=== PATIENT | male | born 1935 | race Caucasian/White ===

== ENCOUNTER 2017-12-30 13:52 | Emergency (ER) | payer OTHER, SELFPAY ==
[2017-12-30 14:06] VITALS: BP 118/59; PULSE 82; RESP 16; TEMP 36.9; O2SAT 97; BMI 27.9
--- NOTE | 2017-12-30 14:47 | DI.CT.S_ITS ---
PROCEDURE: CT HEAD/BRAIN WO CON INDICATIONS: dizzy, AMS this am TECHNIQUE: Noncontrast 4.5 mm thick angled axial sections acquired from the foramen magnum to the vertex, with coronal and sagittal reformats. For radiation dose reduction, the following was used: automated exposure control, adjustment of mA and/or kV according to patient size. COMPARISON: None. FINDINGS: Image quality: Excellent. CSF spaces: Basal cisterns are patent. No extra-axial fluid collections. The ventricles are symmetric in size and shape. Brain: No intracranial bleeds or masses. There is cerebral volume loss for age, with resultant ventricular and sulcal prominence. There are periventricular and deep white matter chronic small vessel ischemic changes. There is intracranial internal carotid artery atherosclerosis. Skull and face: Calvarium and visualized facial bones appear intact, without suspicious lesions. Sinuses: Visualized sinuses and mastoids are clear. IMPRESSION: No acute intracranial abnormality. Dictated by: Bri Bucio M.D. on 12/30/2017 at 15:05 Approved by: Bri Bucio M.D. on 12/30/2017 at 15:06
--- NOTE | 2017-12-30 14:49 | DI.RAD.S_ITS ---
PROCEDURE: XR CHEST 2V INDICATIONS: ams TECHNIQUE: 2 views of the chest were acquired. COMPARISON: None. FINDINGS: Surgical changes and devices: None. Lungs and pleura: No pleural effusions or pneumothorax. Lungs are clear. Mediastinum: Mediastinal contours are normal. Heart size is normal. Bones and chest wall: No suspicious bony abnormalities. Soft tissues appear unremarkable. IMPRESSION: No acute process. Dictated by: Bri Bucio M.D. on 12/30/2017 at 15:12 Approved by: Bri Bucio M.D. on 12/30/2017 at 15:12
[2017-12-30 15:00] LABS: Add Manual Diff / Slide Review NO; Basophils Percent Auto 0.5 % (0-2); Hematocrit 40.6 % (41-53); Hemoglobin 13.7 g/dL (13.5-17.5); Lymphocytes Percent Auto 4.2 % (25-40); Mean Corpuscular HGB Conc 33.7 % (30-36); Mean Corpuscular Hemoglobin 31.7 PG (26-34); Monocytes Percent Auto 6.6 % (3-14); Neutrophils Absolute Auto 16200 /uL (3000-5900); Neutrophils Percent Auto 88.7 % (50-75); Platelet Count 106 X10^3/uL (150-400); Red Blood Cell Count 4.32 X10^6/uL (4.5-5.9); Red Cell Distribution Width 12.9 % (11.6-14.8); White Blood Cell Count 18.2 X10^3/uL (4.5-11.0)
[2017-12-30 15:06] LABS: Alanine Aminotransferase 74 IU/L (21-72); Albumin 4.3 g/dL (3.5-5.0); Albumin Globulin Ratio 1.5 (1.0-2.8); Alkaline Phosphatase 55 U/L (38-126); Aspartate Aminotransferase 40 IU/L (17-59); Blood Urea Nitrogen 18 mg/dL (9-20); Calcium 9.4 mg/dL (8.4-10.2); Carbon Dioxide 27 mmol/L (22-32); Chloride 101 mmol/L (98-107); Creatine Kinase 39 U/L (55-170); Estimated Glomerular Filt Rate > 60.0 mL/min (>60); Globulin 2.8 g/dL (1.7-4.1); Glucose 142 mg/dL (80-110); HEMOLYSIS < 15 (0-50); Sodium 139 mmol/L (137-145); Total Protein 7.1 g/dL (6.3-8.2)
[2017-12-30 15:18] LABS: B Type Natriuretic Peptide 32.4 (<100); Troponin I < 0.012 ng/mL (0.01-0.034)
[2017-12-30 15:30] VITALS: BP 114/41; PULSE 74; RESP 14; O2SAT 97
[2017-12-30] MEDS: SODIUM CHLORIDE 0.9% 1,000 ML 1000 ML IV (15:34)
--- NOTE | 2017-12-30 15:41 | ED.DIZZY ---
HPI - Dizziness <TEDDY Sanders - Last Filed: 12/30/17 18:17> General Chief Complaint: Dizziness Stated Complaint: very dizzy this morning Time Seen by Provider: 12/30/17 14:30 Source: patient and family Mode of arrival: ambulatory Limitations: no limitations History of Present Illness HPI Narrative: Patient presents with chief complaint of one hr of dizziness this morning. Described as lightheadedness and near syncope while walking to the kitchen. He denied any chest pain, shortness of breath, fever, nausea vomiting or diarrhea. He denies any cough, congestion, abdominal pain. He states right now he feels fine. He denies any major medical history other than orthopedic procedures. He does not take any prescription medications per day. Denies any dysuria, urgency or frequency. He denies rectal pressure. He denies pain on bowel movement. Related Data Previous Rx's Medication Instructions Recorded levofloxacin 750 mg PO DAILY #7 tab 12/30/17 Allergies Allergy/AdvReac Type Severity Reaction Status Date / Time No Known Allergies Allergy Uncoded 06/27/17 13:04 Review of Systems <TEDDY Sanders - Last Filed: 12/30/17 18:17> Review of Systems GENERAL: Denies chills, fatigue, malaise, fever, sweats. HEENT: Denies sinus pain, ear pain, sore throat, difficulty swallowing, dizziness. RESPIRATORY: Denies dyspnea, cough, wheezing, hemoptysis, sputum. CARDIOVASCULAR: Denies chest pain, palpitations, orthopnea, edema, GASTROINTESTINAL: Denies nausea, vomiting, abdominal pain, diarrhea, constipation, melena. : Denies dysuria, frequency, incontinence, hematuria, urinary retention. MUSCULOSKELETAL: denies weakness, joint pain, or bony pain SKIN: Denies rash, skin lesions, or other NEUROLOGIC: See HPI PSYCHIATRIC: No concerning psychosocial issues. 12 point review of systems is negative except for those stated above Exam <TEDDY Sanders - Last Filed: 12/30/17 18:17> Narrative Exam Narrative: GENERAL: Elderly gentleman lying on stretcher. HEAD: Atraumatic. Normocephalic. No temporal or scalp tenderness. EYES: Pupils equal round and reactive. Extraocular motions intact. No scleral icterus. No injection or drainage. ENT: Nose without bleeding, purulent drainage or septal hematoma. Throat without erythema, tonsillar hypertrophy or exudate. Uvula midline. Airway patent. NECK: Trachea midline. No JVD or lymphadenopathy. Supple, nontender, no meningeal signs. CARDIOVASCULAR: Regular rate and rhythm without murmurs, gallops, or rubs. RESPIRATORY: Clear to auscultation. Breath sounds equal bilaterally. No wheezes, rales, or rhonchi. GASTROINTESTINAL: Abdomen soft, non-tender, nondistended. No hepato-splenomegaly, or palpable masses. No guarding. EXTREMITIES: No clubbing, cyanosis, or edema. No joint tenderness, effusion, or edema noted. BACK: Nontender without deformity or crepitance. No flank tenderness. NEURO: AOx3. Cranial nerves grossly intact. Strength equal upper and lower extremities bilaterally. SKIN: No rash or erythema. Initial Vital Signs Initial Vital Signs: Vital Signs Temperature 98.5 F 12/30/17 14:06 Pulse Rate 82 12/30/17 14:06 Respiratory Rate 16 12/30/17 14:06 Blood Pressure 118/59 L 12/30/17 14:06 Pulse Oximetry 97 12/30/17 14:06 <David Wells DO - Last Filed: 12/30/17 18:38> Initial Vital Signs Initial Vital Signs: Vital Signs Temperature 98.5 F 12/30/17 14:06 Pulse Rate 82 12/30/17 14:06 Respiratory Rate 16 12/30/17 14:06 Blood Pressure 118/59 L 12/30/17 14:06 Pulse Oximetry 97 12/30/17 14:06 Course <KARINA Sanders-BC - Last Filed: 12/30/17 18:17> Course Narrative: A checked on the patient and his several times throughout his stay. Orders Ordered: ED Orders 12/30/17 14:40 B Type Natriuretic Peptide Stat Complete Blood Count AUTO DIFF Stat Comprehensive Metabolic Panel Stat Troponin & CK Cardiac Panel Stat 12/30/17 14:47 CT head/brain wo con Stat 12/30/17 14:49 XR chest 2V Stat 12/30/17 16:00 Urinalysis and Microscopic Stat Urine Culture Stat Discontinued Medications Sodium Chloride (Normal Saline 0.9%) 1,000 mls @ 1,000 mls/hr IV BOLUS ONE Stop: 12/30/17 15:46 Last Infusion: 12/30/17 16:48 Dose: 1,000 mls/hr Admin: 12/30/17 15:34 Dose: 1,000 mls/hr Levofloxacin (Levaquin) 500 mg PO NOW ONE Stop: 12/30/17 16:34 Last Admin: 12/30/17 16:41 Dose: 500 mg Vital Signs - 8 hr 12/30/17 14:06 12/30/17 15:30 12/30/17 16:36 Temperature 98.5 F Pulse Rate 82 74 75 Respiratory Rate 16 14 20 Blood Pressure 118/59 L Blood Pressure [Left Arm] 114/41 L 120/54 L Pulse Oximetry 97 97 96 <David Wells DO - Last Filed: 12/30/17 18:38> Orders Ordered: ED Orders 12/30/17 14:40 B Type Natriuretic Peptide Stat Complete Blood Count AUTO DIFF Stat Comprehensive Metabolic Panel Stat Troponin & CK Cardiac Panel Stat 12/30/17 14:47 CT head/brain wo con Stat 12/30/17 14:49 XR chest 2V Stat 12/30/17 16:00 Urinalysis and Microscopic Stat Urine Culture Stat Discontinued Medications Sodium Chloride (Normal Saline 0.9%) 1,000 mls @ 1,000 mls/hr IV BOLUS ONE Stop: 12/30/17 15:46 Last Infusion: 12/30/17 16:48 Dose: 1,000 mls/hr Admin: 12/30/17 15:34 Dose: 1,000 mls/hr Levofloxacin (Levaquin) 500 mg PO NOW ONE Stop: 12/30/17 16:34 Last Admin: 12/30/17 16:41 Dose: 500 mg Vital Signs - 8 hr 12/30/17 14:06 12/30/17 15:30 12/30/17 16:36 Temperature 98.5 F Pulse Rate 82 74 75 Respiratory Rate 16 14 20 Blood Pressure 118/59 L Blood Pressure [Left Arm] 114/41 L 120/54 L Pulse Oximetry 97 97 96 MDM - Dizziness <KANWAL Sanders - Last Filed: 12/30/17 18:17> Lab Data Attestation: I reviewed the patient's lab results. Result diagrams: 12/30/17 14:40 12/30/17 14:40 Lab Results 12/30/17 12/30/1718 Range/Units 14:40 14:40 16:00 WBC 18.2 H (4.5-11.0) X10^3/uL RBC 4.32 L (4.5-5.9) X10^6/uL Hgb 13.7 (13.5-17.5) g/dL Hct 40.6 L (41-53) % MCV 94.0 (80-100) fL MCH 31.7 (26-34) PG MCHC 33.7 (30-36) % RDW 12.9 (11.6-14.8) % Plt Count 106 L (150-400) X10^3/uL Neut % (Auto) 88.7 H (50-75) % Lymph % (Auto) 4.2 L (25-40) % Lamar % (Auto) 6.6 (3-14) % Eos % (Auto) 0.0 L (2-4) % Baso % (Auto) 0.5 (0-2) % Neut # (Auto) 47040 H (1008-1812) /uL Sodium 139 (137-145) mmol/L Potassium 4.0 (3.4-5.1) mmol/L Chloride 101 (98-107) mmol/L Carbon Dioxide 27 (22-32) mmol/L BUN 18 (9-20) mg/dL Creatinine 0.90 (0.66-1.25) mg/dL Estimated GFR > 60.0 (>60) mL/min BUN/Creatinine Ratio 20.0 (6-22) Glucose 142 H (80-110) mg/dL Calcium 9.4 (8.4-10.2) mg/dL Total Bilirubin 1.0 (0.2-1.3) mg/dL AST 40 (17-59) IU/L ALT 74 H (21-72) IU/L Alkaline Phosphatase 55 (38-126) U/L Total Creatine Kinase 39 L (55-170) U/L CK-MB (CK-2) TNP CK-MB (CK-2) Rel Index TNP Troponin I < 0.012 (0.01-0.034) ng/mL B-Natriuretic Peptide 32.4 (<100) Total Protein 7.1 (6.3-8.2) g/dL Albumin 4.3 (3.5-5.0) g/dL Globulin 2.8 (1.7-4.1) g/dL Albumin/Globulin Ratio 1.5 (1.0-2.8) Urine Color Yellow Urine Appearance Sl cloudy Urine pH 6.5 (4.5-8.0) Ur Specific Parnell 1.010 (1.000-1.035) Urine Protein Negative (Negative) Urine Glucose (UA) Negative (Normal) g/dL Urine Ketones Negative (NEGATIVE) Urine Occult Blood 1+ H (Negative) Urine Nitrate Negative (Negative) Urine Bilirubin Negative (NEGATIVE) Urine Urobilinogen 0.2 (0.2) E.U./dL Ur Leukocyte Esterase 1+ H (NEGATIVE) Urine RBC None seen (0-5/HPF) Urine WBC 5-10/hpf H (0-5/HPF) Ur Squamous Epith Cells None seen Urine Bacteria Many (>30) H (None) Ur Culture Indicated? Specimen cultured Micro UA Comment Not Reportable Imaging Data CT scan - head: Radiologist's impression: [facility] DATE TYPE STATUS AUTHOR Hx 12/30/17 14:49 Bri Bucio 12/30/17 14:47 Bri Bucio Jorg 82, M103/20/1934 REG ER, ED - [facility] ED: R05 177.8cm 88.451kg BSA: 2.06m? BMI: 28.0kg/m? Dizziness Search Chart No Data to Display [No Known Allergies] ONSET 06/16/14 06/16/14 06/16/14 06/16/14 Today 15:30 [place] [address] CT Scan Report Signed Patient: AdalbertoAdrienne#: [id number] : 5Acct:[id number] Age/Sex: 82 / MDate of Service: 12/30/17 Loc: ED Accession Number: [id number] Procedure: CT head/brain wo con Ordering Provider: Tala Carlson- PROCEDURE: CT HEAD/BRAIN WO CON INDICATIONS: dizzy, AMS this am TECHNIQUE: Noncontrast 4.5 mm thick angled axial sections acquired from the foramen magnum to the vertex, with coronal and sagittal reformats. For radiation dose reduction, the following was used: automated exposure control, adjustment of mA and/or kV according to patient size. COMPARISON: None. FINDINGS: Image quality: Excellent. CSF spaces: Basal cisterns are patent. No extra-axial fluid collections. The ventricles are symmetric in size and shape. Brain: No intracranial bleeds or masses. There is cerebral volume loss for age, with resultant ventricular and sulcal prominence. There are periventricular and deep white matter chronic small vessel ischemic changes. There is intracranial internal carotid artery atherosclerosis. Skull and face: Calvarium and visualized facial bones appear intact, without suspicious lesions. Sinuses: Visualized sinuses and mastoids are clear. IMPRESSION: No acute intracranial abnormality. Dictated by: Bri Bucio M.D. on 12/30/2017 at 15:05 Approved by: Bri Bucio M.D. on 12/30/2017 at 15:06 Chest x-ray: Radiologist's impression: [place] [address] XRay Report Signed Patient: Adrienne Glover#: [id number] : 5Acct:[id number] Age/Sex: 82 / MDate of Service: 12/30/17 Loc: ED Accession Number: [id number] Procedure: XR chest 2V Ordering Provider: Tala Carlson PROCEDURE: XR CHEST 2V INDICATIONS: ams TECHNIQUE: 2 views of the chest were acquired. COMPARISON: None. FINDINGS: Surgical changes and devices: None. Lungs and pleura: No pleural effusions or pneumothorax. Lungs are clear. Mediastinum: Mediastinal contours are normal. Heart size is normal. Bones and chest wall: No suspicious bony abnormalities. Soft tissues appear unremarkable. IMPRESSION: No acute process. Dictated by: Bri Bucio M.D. on 12/30/2017 at 15:12 Approved by: Bri Bucio M.D. on 12/30/2017 at 15:12 ECG Data Attestation: I personally reviewed and interpreted this ECG as follows: Interpretation: Sinus rhythm. Ventricular rate 81. No ST elevation or depression. No ectopy noted. [facility] Narrative Medical decision making narrative: Patient presents with chief complaint of dizziness earlier today. He has been hemodynamically stable in the emergency department. Had a normal EKG, CT head, and chest x-ray. He had a negative cardiac workup. However he was noted to have elevated white blood cell count as well as bacteria in his urine. He denies any symptoms of prostatitis. I am starting him on Levaquin for UTI. We discussed follow up with primary care provider, as well as return precautions of flank pain, high fever, worsening or recurrence. Given his earlier dizziness, checked with both patient and his to make sure they are comfortable being discharged and they agreed. No questions or concerns upon discharge and patient steady to check out. <David Wells, DO - Last Filed: 12/30/17 18:38> Lab Data Lab Results 12/30/17 12/30/17 12/30/17 Range/Units 14:40 14:40 16:00 WBC 18.2 H (4.5-11.0) X10^3/uL RBC 4.32 L (4.5-5.9) X10^6/uL Hgb 13.7 (13.5-17.5) g/dL Hct 40.6 L (41-53) % MCV 94.0 (80-100) fL MCH 31.7 (26-34) PG MCHC 33.7 (30-36) % RDW 12.9 (11.6-14.8) % Plt Count 106 L (150-400) X10^3/uL Neut % (Auto) 88.7 H (50-75) % Lymph % (Auto) 4.2 L (25-40) % Lamar % (Auto) 6.6 (3-14) % Eos % (Auto) 0.0 L (2-4) % Baso % (Auto) 0.5 (0-2) % Neut # (Auto) 65953 H (2982-3022) /uL Sodium 139 (137-145) mmol/L Potassium 4.0 (3.4-5.1) mmol/L Chloride 101 (98-107) mmol/L Carbon Dioxide 27 (22-32) mmol/L BUN 18 (9-20) mg/dL Creatinine 0.90 (0.66-1.25) mg/dL Estimated GFR > 60.0 (>60) mL/min BUN/Creatinine Ratio 20.0 (6-22) Glucose 142 H (80-110) mg/dL Calcium 9.4 (8.4-10.2) mg/dL Total Bilirubin 1.0 (0.2-1.3) mg/dL AST 40 (17-59) IU/L ALT 74 H (21-72) IU/L Alkaline Phosphatase 55 (38-126) U/L Total Creatine Kinase 39 L (55-170) U/L CK-MB (CK-2) TNP CK-MB (CK-2) Rel Index TNP Troponin I < 0.012 (0.01-0.034) ng/mL B-Natriuretic Peptide 32.4 (<100) Total Protein 7.1 (6.3-8.2) g/dL Albumin 4.3 (3.5-5.0) g/dL Globulin 2.8 (1.7-4.1) g/dL Albumin/Globulin Ratio 1.5 (1.0-2.8) Urine Color Yellow Urine Appearance Sl cloudy Urine pH 6.5 (4.5-8.0) Ur Specific Parnell 1.010 (1.000-1.035) Urine Protein Negative (Negative) Urine Glucose (UA) Negative (Normal) g/dL Urine Ketones Negative (NEGATIVE) Urine Occult Blood 1+ H (Negative) Urine Nitrate Negative (Negative) Urine Bilirubin Negative (NEGATIVE) Urine Urobilinogen 0.2 (0.2) E.U./dL Ur Leukocyte Esterase 1+ H (NEGATIVE) Urine RBC None seen (0-5/HPF) Urine WBC 5-10/hpf H (0-5/HPF) Ur Squamous Epith Cells None seen Urine Bacteria Many (>30) H (None) Ur Culture Indicated? Specimen cultured Micro UA Comment Not Reportable Discharge Plan Departure Patient Disposition: Home Clinical Impression: Acute UTI Discharge Date/Time: 12/30/17 16:59 Interventions: ED Discharge Assessment Last Done: 12/30/17 16:57 Instructions: DI for Urinary Tract Infection (UTI) Activity Restrictions/Additional Instructions: I am starting you on an antibiotic for urinary tract infection. Please monitor for fever, inability keep down fluids, or flank pain. These are signs that the antibiotics are not helping your infection. We are sending a urine culture to make sure that the antibiotic is appropriate for your infection. Please follow up with primary care provider or come back to the emergency department for any acute concerns. Prescriptions: New levofloxacin 750 mg tablet 750 mg PO DAILY Qty: 7 RF: 0 Referrals: Edin Medrano MD [Primary Care Provider] - <David Wells DO - Last Filed: 12/30/17 18:38> Cosign ED Attending Malka Attestation: I was immediately available in the department for consultation. Documentation has been reviewed. I agree with assessment and plan.
--- NOTE | 2017-12-30 15:46 | ED_ITS ---
HPI - Dizziness <TEDDY Sanders - Last Filed: 12/30/17 18:17> General Chief Complaint: Dizziness Stated Complaint: very dizzy this morning Time Seen by Provider: 12/30/17 14:30 Source: patient and family Mode of arrival: ambulatory Limitations: no limitations History of Present Illness HPI Narrative: Patient presents with chief complaint of one hr of dizziness this morning. Described as lightheadedness and near syncope while walking to the kitchen. He denied any chest pain, shortness of breath, fever, nausea vomiting or diarrhea. He denies any cough, congestion, abdominal pain. He states right now he feels fine. He denies any major medical history other than orthopedic procedures. He does not take any prescription medications per day. Denies any dysuria, urgency or frequency. He denies rectal pressure. He denies pain on bowel movement. Related Data Previous Rx's Medication Instructions Recorded levofloxacin 750 mg PO DAILY #7 tab 12/30/17 Allergies Allergy/AdvReac Type Severity Reaction Status Date / Time No Known Allergies Allergy Uncoded 06/27/17 13:04 Review of Systems <TEDDY Sanders - Last Filed: 12/30/17 18:17> Review of Systems GENERAL: Denies chills, fatigue, malaise, fever, sweats. HEENT: Denies sinus pain, ear pain, sore throat, difficulty swallowing, dizziness. RESPIRATORY: Denies dyspnea, cough, wheezing, hemoptysis, sputum. CARDIOVASCULAR: Denies chest pain, palpitations, orthopnea, edema, GASTROINTESTINAL: Denies nausea, vomiting, abdominal pain, diarrhea, constipation, melena. : Denies dysuria, frequency, incontinence, hematuria, urinary retention. MUSCULOSKELETAL: denies weakness, joint pain, or bony pain SKIN: Denies rash, skin lesions, or other NEUROLOGIC: See HPI PSYCHIATRIC: No concerning psychosocial issues. 12 point review of systems is negative except for those stated above Exam <TEDDY Sanders - Last Filed: 12/30/17 18:17> Narrative Exam Narrative: GENERAL: Elderly gentleman lying on stretcher. HEAD: Atraumatic. Normocephalic. No temporal or scalp tenderness. EYES: Pupils equal round and reactive. Extraocular motions intact. No scleral icterus. No injection or drainage. ENT: Nose without bleeding, purulent drainage or septal hematoma. Throat without erythema, tonsillar hypertrophy or exudate. Uvula midline. Airway patent. NECK: Trachea midline. No JVD or lymphadenopathy. Supple, nontender, no meningeal signs. CARDIOVASCULAR: Regular rate and rhythm without murmurs, gallops, or rubs. RESPIRATORY: Clear to auscultation. Breath sounds equal bilaterally. No wheezes , rales, or rhonchi. GASTROINTESTINAL: Abdomen soft, non-tender, nondistended. No hepato-splenomegaly , or palpable masses. No guarding. EXTREMITIES: No clubbing, cyanosis, or edema. No joint tenderness, effusion, or edema noted. BACK: Nontender without deformity or crepitance. No flank tenderness. NEURO: AOx3. Cranial nerves grossly intact. Strength equal upper and lower extremities bilaterally. SKIN: No rash or erythema. Initial Vital Signs Initial Vital Signs: Vital Signs Temperature 98.5 F 12/30/17 14:06 Pulse Rate 82 12/30/17 14:06 Respiratory Rate 16 12/30/17 14:06 Blood Pressure 118/59 L 12/30/17 14:06 Pulse Oximetry 97 12/30/17 14:06 <David Wells DO - Last Filed: 12/30/17 18:38> Initial Vital Signs Initial Vital Signs: Vital Signs Temperature 98.5 F 12/30/17 14:06 Pulse Rate 82 12/30/17 14:06 Respiratory Rate 16 12/30/17 14:06 Blood Pressure 118/59 L 12/30/17 14:06 Pulse Oximetry 97 12/30/17 14:06 Course <KARINA Sanders-BC - Last Filed: 12/30/17 18:17> Course Narrative: A checked on the patient and his several times throughout his stay. Orders Ordered: ED Orders 12/30/17 14:40 B Type Natriuretic Peptide Stat Complete Blood Count AUTO DIFF Stat Comprehensive Metabolic Panel Stat Troponin & CK Cardiac Panel Stat 12/30/17 14:47 CT head/brain wo con Stat 12/30/17 14:49 XR chest 2V Stat 12/30/17 16:00 Urinalysis and Microscopic Stat Urine Culture Stat Discontinued Medications Sodium Chloride (Normal Saline 0.9%) 1,000 mls @ 1,000 mls/hr IV BOLUS ONE Stop: 12/30/17 15:46 Last Infusion: 12/30/17 16:48 Dose: 1,000 mls/hr Admin: 12/30/17 15:34 Dose: 1,000 mls/hr Levofloxacin (Levaquin) 500 mg PO NOW ONE Stop: 12/30/17 16:34 Last Admin: 12/30/17 16:41 Dose: 500 mg Vital Signs - 8 hr 12/30/17 14:06 12/30/17 15:30 12/30/17 16:36 Temperature 98.5 F Pulse Rate 82 74 75 Respiratory Rate 16 14 20 Blood Pressure 118/59 L Blood Pressure [Left Arm] 114/41 L 120/54 L Pulse Oximetry 97 97 96 <David Wells DO - Last Filed: 12/30/17 18:38> Orders Ordered: ED Orders 12/30/17 14:40 B Type Natriuretic Peptide Stat Complete Blood Count AUTO DIFF Stat Comprehensive Metabolic Panel Stat Troponin & CK Cardiac Panel Stat 12/30/17 14:47 CT head/brain wo con Stat 12/30/17 14:49 XR chest 2V Stat 12/30/17 16:00 Urinalysis and Microscopic Stat Urine Culture Stat Discontinued Medications Sodium Chloride (Normal Saline 0.9%) 1,000 mls @ 1,000 mls/hr IV BOLUS ONE Stop: 12/30/17 15:46 Last Infusion: 12/30/17 16:48 Dose: 1,000 mls/hr Admin: 12/30/17 15:34 Dose: 1,000 mls/hr Levofloxacin (Levaquin) 500 mg PO NOW ONE Stop: 12/30/17 16:34 Last Admin: 12/30/17 16:41 Dose: 500 mg Vital Signs - 8 hr 12/30/17 14:06 12/30/17 15:30 12/30/17 16:36 Temperature 98.5 F Pulse Rate 82 74 75 Respiratory Rate 16 14 20 Blood Pressure 118/59 L Blood Pressure [Left Arm] 114/41 L 120/54 L Pulse Oximetry 97 97 96 MDM - Dizziness <KANWAL Sanders - Last Filed: 12/30/17 18:17> Lab Data Attestation: I reviewed the patient's lab results. Result diagrams: 12/30/17 14:40 12/30/17 14:40 Lab Results 12/30/17 12/30/1718 Range/Units 14:40 14:40 16:00 WBC 18.2 H (4.5-11.0) X10^3/uL RBC 4.32 L (4.5-5.9) X10^6/uL Hgb 13.7 (13.5-17.5) g/dL Hct 40.6 L (41-53) % MCV 94.0 (80-100) fL MCH 31.7 (26-34) PG MCHC 33.7 (30-36) % RDW 12.9 (11.6-14.8) % Plt Count 106 L (150-400) X10^3/uL Neut % (Auto) 88.7 H (50-75) % Lymph % (Auto) 4.2 L (25-40) % [place] % (Auto) 6.6 (3-14) % Eos % (Auto) 0.0 L (2-4) % Baso % (Auto) 0.5 (0-2) % Neut # (Auto) 01279 H (5627-0988) /uL Sodium 139 (137-145) mmol/L Potassium 4.0 (3.4-5.1) mmol/L Chloride 101 (98-107) mmol/L Carbon Dioxide 27 (22-32) mmol/L BUN 18 (9-20) mg/dL Creatinine 0.90 (0.66-1.25) mg/dL Estimated GFR > 60.0 (>60) mL/min BUN/Creatinine Ratio 20.0 (6-22) Glucose 142 H (80-110) mg/dL Calcium 9.4 (8.4-10.2) mg/dL Total Bilirubin 1.0 (0.2-1.3) mg/dL AST 40 (17-59) IU/L ALT 74 H (21-72) IU/L Alkaline Phosphatase 55 (38-126) U/L Total Creatine Kinase 39 L (55-170) U/L CK-MB (CK-2) TNP CK-MB (CK-2) Rel Index TNP Troponin I < 0.012 (0.01-0.034) ng/mL B-Natriuretic Peptide 32.4 (<100) Total Protein 7.1 (6.3-8.2) g/dL Albumin 4.3 (3.5-5.0) g/dL Globulin 2.8 (1.7-4.1) g/dL Albumin/Globulin Ratio 1.5 (1.0-2.8) Urine Color Yellow Urine Appearance Sl cloudy Urine pH 6.5 (4.5-8.0) Ur Specific [place] 1.010 (1.000-1.035) Urine Protein Negative (Negative) Urine Glucose (UA) Negative (Normal) g/dL Urine Ketones Negative (NEGATIVE) Urine Occult Blood 1+ H (Negative) Urine Nitrate Negative (Negative) Urine Bilirubin Negative (NEGATIVE) Urine Urobilinogen 0.2 (0.2) E.U./dL Ur Leukocyte Esterase 1+ H (NEGATIVE) Urine RBC None seen (0-5/HPF) Urine WBC 5-10/hpf H (0-5/HPF) Ur Squamous Epith Cells None seen Urine Bacteria Many (>30) H (None) Ur Culture Indicated? Specimen cultured Micro UA Comment Not Reportable Imaging Data CT scan - head: Radiologist's impression: [facility] DATE TYPE STATUS AUTHOR Hx 12/30/17 14:49 Bri Bucio 12/30/17 14:47 Bri Bucio Jorg 82, M103/20/1934 REG ER, ED - [facility] ED: R05 177.8cm 88.451kg BSA: 2.06m? BMI: 28.0kg/m? Dizziness Search Chart No Data to Display [No Known Allergies] ONSET 06/16/14 06/16/14 06/16/14 06/16/14 Today 15:30 [place] [address] CT Scan Report Signed Patient: AdalbertoAdrienne#: [id number] : 5Acct:[id number] Age/Sex: 82 / MDate of Service: 12/30/17 Loc: ED Accession Number: [id number] Procedure: CT head/brain wo con Ordering Provider: Tala Carlson- PROCEDURE: CT HEAD/BRAIN WO CON INDICATIONS: dizzy, AMS this am TECHNIQUE: Noncontrast 4.5 mm thick angled axial sections acquired from the foramen magnum to the vertex, with coronal and sagittal reformats. For radiation dose reduction, the following was used: automated exposure control, adjustment of mA and/or kV according to patient size. COMPARISON: None. FINDINGS: Image quality: Excellent. CSF spaces: Basal cisterns are patent. No extra-axial fluid collections. The ventricles are symmetric in size and shape. Brain: No intracranial bleeds or masses. There is cerebral volume loss for age , with resultant ventricular and sulcal prominence. There are periventricular and deep white matter chronic small vessel ischemic changes. There is intracranial internal carotid artery atherosclerosis. Skull and face: Calvarium and visualized facial bones appear intact, without suspicious lesions. Sinuses: Visualized sinuses and mastoids are clear. IMPRESSION: No acute intracranial abnormality. Dictated by: Bri Bucio M.D. on 12/30/2017 at 15:05 Approved by: Bri Bucio M.D. on 12/30/2017 at 15:06 Chest x-ray: Radiologist's impression: [place] [address] XRay Report Signed Patient: Adrienne Glover#: [id number] : 5Acct:[id number] Age/Sex: 82 / MDate of Service: 12/30/17 Loc: ED Accession Number: [id number] Procedure: XR chest 2V Ordering Provider: Tala Carlson PROCEDURE: XR CHEST 2V INDICATIONS: ams TECHNIQUE: 2 views of the chest were acquired. COMPARISON: None. FINDINGS: Surgical changes and devices: None. Lungs and pleura: No pleural effusions or pneumothorax. Lungs are clear. Mediastinum: Mediastinal contours are normal. Heart size is normal. Bones and chest wall: No suspicious bony abnormalities. Soft tissues appear unremarkable. IMPRESSION: No acute process. Dictated by: Bri Bucio M.D. on 12/30/2017 at 15:12 Approved by: Bri Bucio M.D. on 12/30/2017 at 15:12 ECG Data Attestation: I personally reviewed and interpreted this ECG as follows: Interpretation: Sinus rhythm. Ventricular rate 81. No ST elevation or depression. No ectopy noted. [facility] Narrative Medical decision making narrative: Patient presents with chief complaint of dizziness earlier today. He has been hemodynamically stable in the emergency department. Had a normal EKG, CT head, and chest x-ray. He had a negative cardiac workup. However he was noted to have elevated white blood cell count as well as bacteria in his urine. He denies any symptoms of prostatitis. I am starting him on Levaquin for UTI. We discussed follow up with primary care provider, as well as return precautions of flank pain, high fever, worsening or recurrence. Given his earlier dizziness, checked with both patient and his to make sure they are comfortable being discharged and they agreed. No questions or concerns upon discharge and patient steady to check out. <David Wells, DO - Last Filed: 12/30/17 18:38> Lab Data Lab Results 12/30/17 12/30/17 12/30/17 Range/Units 14:40 14:40 16:00 WBC 18.2 H (4.5-11.0) X10^3/uL RBC 4.32 L (4.5-5.9) X10^6/uL Hgb 13.7 (13.5-17.5) g/dL Hct 40.6 L (41-53) % MCV 94.0 (80-100) fL MCH 31.7 (26-34) PG MCHC 33.7 (30-36) % RDW 12.9 (11.6-14.8) % Plt Count 106 L (150-400) X10^3/uL Neut % (Auto) 88.7 H (50-75) % Lymph % (Auto) 4.2 L (25-40) % [place] % (Auto) 6.6 (3-14) % Eos % (Auto) 0.0 L (2-4) % Baso % (Auto) 0.5 (0-2) % Neut # (Auto) 59981 H (5233-4636) /uL Sodium 139 (137-145) mmol/L Potassium 4.0 (3.4-5.1) mmol/L Chloride 101 (98-107) mmol/L Carbon Dioxide 27 (22-32) mmol/L BUN 18 (9-20) mg/dL Creatinine 0.90 (0.66-1.25) mg/dL Estimated GFR > 60.0 (>60) mL/min BUN/Creatinine Ratio 20.0 (6-22) Glucose 142 H (80-110) mg/dL Calcium 9.4 (8.4-10.2) mg/dL Total Bilirubin 1.0 (0.2-1.3) mg/dL AST 40 (17-59) IU/L ALT 74 H (21-72) IU/L Alkaline Phosphatase 55 (38-126) U/L Total Creatine Kinase 39 L (55-170) U/L CK-MB (CK-2) TNP CK-MB (CK-2) Rel Index TNP Troponin I < 0.012 (0.01-0.034) ng/mL B-Natriuretic Peptide 32.4 (<100) Total Protein 7.1 (6.3-8.2) g/dL Albumin 4.3 (3.5-5.0) g/dL Globulin 2.8 (1.7-4.1) g/dL Albumin/Globulin Ratio 1.5 (1.0-2.8) Urine Color Yellow Urine Appearance Sl cloudy Urine pH 6.5 (4.5-8.0) Ur Specific [place] 1.010 (1.000-1.035) Urine Protein Negative (Negative) Urine Glucose (UA) Negative (Normal) g/dL Urine Ketones Negative (NEGATIVE) Urine Occult Blood 1+ H (Negative) Urine Nitrate Negative (Negative) Urine Bilirubin Negative (NEGATIVE) Urine Urobilinogen 0.2 (0.2) E.U./dL Ur Leukocyte Esterase 1+ H (NEGATIVE) Urine RBC None seen (0-5/HPF) Urine WBC 5-10/hpf H (0-5/HPF) Ur Squamous Epith Cells None seen Urine Bacteria Many (>30) H (None) Ur Culture Indicated? Specimen cultured Micro UA Comment Not Reportable Discharge Plan Departure Patient Disposition: Home Clinical Impression: Acute UTI Discharge Date/Time: 12/30/17 16:59 Interventions: ED Discharge Assessment Last Done: 12/30/17 16:57 Instructions: DI for Urinary Tract Infection (UTI) Activity Restrictions/Additional Instructions: I am starting you on an antibiotic for urinary tract infection. Please monitor for fever, inability keep down fluids, or flank pain. These are signs that the antibiotics are not helping your infection. We are sending a urine culture to make sure that the antibiotic is appropriate for your infection. Please follow up with primary care provider or come back to the emergency department for any acute concerns. Prescriptions: New levofloxacin 750 mg tablet 750 mg PO DAILY Qty: 7 RF: 0 Referrals: Edin Medrano MD [Primary Care Provider] - <David Wells DO - Last Filed: 12/30/17 18:38> Cosign ED Attending Malka Attestation: I was immediately available in the department for consultation. Documentation has been reviewed. I agree with assessment and plan.
[2017-12-30 16:04] LABS: RBC Urine None Seen (0-5/HPF)
[2017-12-30 16:09] LABS: Appearance Urine UA SL CLOUDY; Bilirubin Urine UA NEGATIVE (NEGATIVE); Color Urine UA YELLOW; Glucose Urine UA NEGATIVE (Normal); Ketones Urine UA NEGATIVE (NEGATIVE); Leukocyte Esterase Urine UA 1+ (NEGATIVE); Nitrite Urine UA NEGATIVE (Negative); Occult Blood Urine UA 1+ (Negative); Protein Urine UA NEGATIVE (Negative); Urobilinogen Urine UA 0.2 E.U./dL (0.2); pH Urine UA 6.5 (4.5-8.0)
[2017-12-30 16:12] LABS: Squamous Epithelial Cell Urine None Seen; WBC Urine 5-10/HPF (0-5/HPF)
[2017-12-30 16:13] LABS: Bacteria Urine Many (>30); Culture Indicated Urine Specimen Cultured
[2017-12-30 16:36] VITALS: BP 120/54; PULSE 75; RESP 20; O2SAT 96
[2017-12-30] MEDS: levoFLOXacin 500 MG TABLET PO (16:41)
== END 2017-12-30 16:59 | disposition home or self-care (01) ==
PROVIDERS: Emergency Provider Nurse Practitioner Family; PCP Family Medicine
DX: N39.0 Urinary tract infection, site not specified (principal)
CPT/HCPCS: 70450; 71046; 80053; 81001; 82550; 83880; 84484; 85025; 87077; 87086; 87186; 93005; 93010; 93041; 96360; 99283; 99285

== ENCOUNTER → 2018-02-19 10:49 | Outpatient (CLI) | payer OTHER, SELFPAY ==
--- NOTE | 2018-02-19 | DI.RAD.S_ITS ---
PROCEDURE: XR FEMUR LT MIN 2V INDICATIONS: LEFT LEG PAIN TECHNIQUE: 4 views of the femur were acquired. COMPARISON: None. FINDINGS: Bones: No fractures or dislocations. No suspicious bony lesions. Left hip and left knee joint osteoarthritic changes are seen. No evidence of avascular necrosis. Soft tissues: Vascular calcifications are noted in posterior medial aspect of left thigh. IMPRESSION: No acute left femoral fracture or dislocation. 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 Dictated by: Chaim Callahan M.D. on 02/19/2018 at 12:36 Approved by: Chaim Callahan M.D. on 02/19/2018 at 12:40
== END ==
PROVIDERS: PCP Family Medicine; Visit Provider Family Medicine
DX: M79.605 Pain in left leg (principal); M16.12 Unilateral primary osteoarthritis, left hip; M17.12 Unilateral primary osteoarthritis, left knee
CPT/HCPCS: 73552

== ENCOUNTER → 2019-05-08 10:20 | Outpatient (CLI) | payer MEDICARE, OTHER, SELFPAY ==
--- NOTE | 2019-05-08 | DI.MRI.S_ITS ---
Report not yet finalized and possibly incomplete! PROCEDURE: MR PELIS WO/W CON INDICATIONS: Malignant neoplasm of prostate TECHNIQUE: Noncontrast coronal T1 spin echo and STIR, sagittal T1 spin echo with fat saturation and STIR, axial T1 spin echo and T2 fast spin echo with fat saturation. After the administration of contrast, axial/sagittal/coronal T1 spin echo with fat saturation through the pelvis. COMPARISON: None. FINDINGS: Image quality: Excellent. Bones: The visualized bone marrow demonstrates normal signal on all sequences. The overlying cortex appears intact. No abnormal intraosseous enhancement. Soft tissues: No soft tissue masses are visualized. The scanned muscles demonstrate normal overall bulk and internal signal. Subcutaneous tissues appear normal as well. No abnormal soft tissue enhancement or adenopathy. Prostate gland: Transitional zone heterogeneity is present, consistent with benign prostatic hypertrophy. The overall dimensions of the prostate gland are 4.0 x 4.8 x 4.3 cm in maximal AP, transverse and craniocaudad dimensions with a prolate ellipse volume calculation of 42.9 cc. No area of abnormal nodular early enhancement is found, no area of abnormal suppressed diffusion signal is identified. IMPRESSION: No malignant appearing mass is identified over the prostate gland. There is heterogeneity of the gland predominantly within the transitional zone, consistent with benign prostatic hypertrophy. Through the visualized marrow space of the pelvis no lesion is seen, and no adenopathy is found. Dictated by: Abisai Madrid M.D. on 05/09/2019 at 13:13 Approved by: Abisai Madrid M.D. on 05/09/2019 at 13:18
== END ==
PROVIDERS: PCP Family Medicine; Referring Provider Specialist; Visit Provider Specialist
DX: C61 Malignant neoplasm of prostate (principal)
CPT/HCPCS: 72197; A9579

== ENCOUNTER → 2020-09-17 11:35 | Outpatient (CLI) | payer MEDICARE, OTHER, SELFPAY ==
[2020-09-17 19:37] LABS: Basophils Absolute Auto 100 /uL (0-100); Eosinophils Absolute Auto 200 /uL (0-450); Eosinophils Percent Auto 3.2 % (2-4); Hematocrit 39.4 % (41-53); Hemoglobin 13.3 g/dL (13.5-17.5); Lymphocytes Absolute Auto 1100 /uL (1100-4500); Lymphocytes Percent Auto 17.7 % (25-40); Mean Corpuscular HGB Conc 33.7 % (30-36); Mean Corpuscular Hemoglobin 32.1 PG (26-34); Mean Corpuscular Volume 95.2 fL (80-100); Monocytes Absolute Auto 600 /uL (0-900); Monocytes Percent Auto 9.3 % (3-14); Neutrophils Absolute Auto 4400 /uL (1500-7000); Neutrophils Percent Auto 68.8 % (50-75); Red Blood Cell Count 4.14 X10^6/uL (4.5-5.9); Red Cell Distribution Width 12.9 % (11.6-14.8); White Blood Cell Count 6.5 X10^3/uL (4.5-11.0)
[2020-09-17 19:44] LABS: HEMOLYSIS < 15 (0-50)
[2020-09-17 19:51] LABS: Alanine Aminotransferase 17 IU/L (<50); Albumin 4.2 g/dL (3.5-5.0); Albumin Globulin Ratio 1.5 (1.0-2.8); Alkaline Phosphatase 52 U/L (38-126); Aspartate Aminotransferase 24 IU/L (17-59); BUN Creatinine Ratio 24.1 (6-22); Blood Urea Nitrogen 21 mg/dL (9-20); Calcium 9.6 mg/dL (8.4-10.2); Carbon Dioxide 28 mmol/L (22-32); Chloride 105 mmol/L (98-107); Estimated Glomerular Filt Rate > 60.0 mL/min (>60); Globulin 2.8 g/dL (1.7-4.1); Glucose 94 mg/dL (80-110); Potassium 4.3 mmol/L (3.4-5.1); Sodium 140 mmol/L (137-145)
[2020-09-17 20:50] LABS: Add Manual Diff / Slide Review SLIDE REVIEW; RBC Morphology Normal Morphology
[2020-09-17 21:03] LABS: Hemoglobin A1C% w Est Avg Glu 5.7 % (4.0-6.0)
== END ==
PROVIDERS: PCP Family Medicine; Visit Provider Family Medicine
DX: R73.03 Prediabetes (principal); R89.8 Other abnormal findings in specimens from other organs, systems and tissues; Z12.5 Encounter for screening for malignant neoplasm of prostate
CPT/HCPCS: 80053; 83036; 85025; G0103

== ENCOUNTER → 2020-10-14 11:42 | Outpatient (CLI) | payer MEDICARE, OTHER, SELFPAY ==
[2020-10-14 20:00] LABS: Add Manual Diff / Slide Review NO; Basophils Absolute Auto 0 /uL (0-100); Basophils Percent Auto 0.4 % (0-2); Eosinophils Absolute Auto 200 /uL (0-450); Eosinophils Percent Auto 2.2 % (2-4); Hematocrit 44.2 % (41-53); Hemoglobin 14.7 g/dL (13.5-17.5); Lymphocytes Absolute Auto 1700 /uL (1100-4500); Lymphocytes Percent Auto 17.8 % (25-40); Mean Corpuscular HGB Conc 33.3 % (30-36); Mean Corpuscular Hemoglobin 32.1 PG (26-34); Mean Corpuscular Volume 96.5 fL (80-100); Monocytes Absolute Auto 800 /uL (0-900); Monocytes Percent Auto 8.4 % (3-14); Neutrophils Absolute Auto 6600 /uL (1500-7000); Neutrophils Percent Auto 71.2 % (50-75); Red Blood Cell Count 4.59 X10^6/uL (4.5-5.9); Red Cell Distribution Width 13.1 % (11.6-14.8); White Blood Cell Count 9.3 X10^3/uL (4.5-11.0)
[2020-10-14 20:04] LABS: Platelet Count 182 X10^3/uL (150-400)
[2021-01-11 19:32] LABS: Add Manual Diff / Slide Review NO; Basophils Absolute Auto 100 /uL (0-100); Basophils Percent Auto 0.9 % (0-2); Eosinophils Absolute Auto 200 /uL (0-450); Eosinophils Percent Auto 2.6 % (2-4); Hemoglobin 13.5 g/dL (13.5-17.5); Lymphocytes Absolute Auto 1500 /uL (1100-4500); Lymphocytes Percent Auto 19.3 % (25-40); Mean Corpuscular HGB Conc 33.8 % (30-36); Mean Corpuscular Hemoglobin 32.4 PG (26-34); Monocytes Absolute Auto 800 /uL (0-900); Monocytes Percent Auto 10.3 % (3-14); Neutrophils Absolute Auto 5400 /uL (1500-7000); Neutrophils Percent Auto 66.9 % (50-75); Red Blood Cell Count 4.17 X10^6/uL (4.5-5.9); Red Cell Distribution Width 12.6 % (11.6-14.8)
[2021-01-11 19:36] LABS: Platelet Count 125 X10^3/uL (150-400)
== END ==
PROVIDERS: PCP Family Medicine; Visit Provider Internal Medicine Hematology & Oncology
DX: C43.59 Malignant melanoma of other part of trunk (principal); R89.8 Other abnormal findings in specimens from other organs, systems and tissues; C61 Malignant neoplasm of prostate
CPT/HCPCS: 85025

== ENCOUNTER → 2021-02-01 09:47 | Outpatient (CLI) | payer MEDICARE, OTHER, SELFPAY ==
[2021-02-02 15:20] LABS: COVID19 - ORCAS (NP or Nasal) Negative (Negative)
== END ==
PROVIDERS: PCP Family Medicine; Referring Provider Physician Assistant; Visit Provider Physician Assistant
DX: Z20.822 Contact with and (suspected) exposure to COVID-19 (principal)
CPT/HCPCS: C9803; U0003

== ENCOUNTER → 2021-02-16 11:06 | Outpatient (CLI) | payer MEDICARE, OTHER, SELFPAY ==
[2021-02-16 16:17] LABS: Prostate Specific Antigen Scrn 10.7 ng/mL (0.1-4.0)
== END ==
PROVIDERS: PCP Family Medicine; Referring Provider Specialist; Visit Provider Specialist
DX: R30.0 Dysuria (principal); Z12.5 Encounter for screening for malignant neoplasm of prostate
CPT/HCPCS: 36415; 81002; 87086; G0103

== ENCOUNTER → 2021-04-11 08:32 | Outpatient (CLI) | payer MEDICARE, OTHER, SELFPAY ==
[2021-04-11 18:39] LABS: Add Manual Diff / Slide Review NO; Basophils Absolute Auto 100 /uL (0-100); Basophils Percent Auto 1.1 % (0-2); Eosinophils Absolute Auto 500 /uL (0-450); Hemoglobin 13.8 g/dL (13.5-17.5); Lymphocytes Absolute Auto 1700 /uL (1100-4500); Lymphocytes Percent Auto 24.8 % (25-40); Mean Corpuscular HGB Conc 34.4 % (30-36); Mean Corpuscular Hemoglobin 32.2 PG (26-34); Mean Corpuscular Volume 93.6 fL (80-100); Monocytes Absolute Auto 700 /uL (0-900); Monocytes Percent Auto 9.8 % (3-14); Neutrophils Absolute Auto 3800 /uL (1500-7000); Neutrophils Percent Auto 56.3 % (50-75); Red Blood Cell Count 4.28 X10^6/uL (4.5-5.9); Red Cell Distribution Width 12.4 % (11.6-14.8); White Blood Cell Count 6.8 X10^3/uL (4.5-11.0)
[2021-04-11 18:52] LABS: Prostate Specific Antigen Scrn 11.5 ng/mL (0.1-4.0)
[2021-04-11 19:01] LABS: Platelet Count 135 X10^3/uL (150-400)
== END ==
PROVIDERS: Specialist; PCP Family Medicine; Referring Provider Internal Medicine Hematology & Oncology; Visit Provider Internal Medicine Hematology & Oncology
DX: R89.8 Other abnormal findings in specimens from other organs, systems and tissues (principal); R97.20 Elevated prostate specific antigen [PSA]
CPT/HCPCS: 84153; 85025; G0103

== ENCOUNTER → 2021-11-10 10:12 | Outpatient (CLI) | payer MEDICARE, OTHER, SELFPAY | PROVIDERS: PCP Family Medicine; Visit Provider Specialist | DX: C61 Malignant neoplasm of prostate (principal); R30.0 Dysuria; R39.9 Unspecified symptoms and signs involving the genitourinary system; Z80.42 Family history of malignant neoplasm of prostate | CPT/HCPCS: 51798; 81002; 87086; 99214 ==

== ENCOUNTER → 2021-12-08 14:14 | Outpatient (CLI) | payer MEDICARE, OTHER, SELFPAY ==
[2021-12-09 05:05] LABS: Prostate Specific Antigen 14.7 ng/mL (0.10-4.00)
== END ==
PROVIDERS: PCP Family Medicine; Visit Provider Specialist
DX: R97.20 Elevated prostate specific antigen [PSA] (principal)
CPT/HCPCS: 84153

== ENCOUNTER → 2021-12-15 12:45 | Outpatient (CLI) | payer MEDICARE, OTHER, SELFPAY ==
--- NOTE | 2021-12-15 12:50 | DI.MRI.S_ITS ---
PROCEDURE: MR PELIS WO/W CON INDICATIONS: Malignant neoplasm of prostate TECHNIQUE: Coronal HASTE, axial T1 FSE with fat saturation, 3-plane nonbreath-hold T2 FSE. After the administration of contrast, dynamic axial, delayed axial and coronal VIBE or 2-D FLASH with fat saturation through the pelvis. Optional diffusion weighted imaging and ADC may be performed. COMPARISON: [facility], MR, MR PELVIS WO/W CON, 05/08/2019, 13:16. FINDINGS: Image quality: Diffusion weighted and dynamic contrast enhanced images are diagnostic. Prostate: The gland measures 4.8 x 4.1 by 4.9 cm. This measures 50 cc. Left anterior mid gland and apex peripheral zone and fibromuscular stroma lesion (24/11) measures 17 x 24 mm. There is suspected extracapsular involvement, characterized by bulging anteriorly into the fibromuscular stroma (12/16). Pi-RADS 5 (DWI 5, T2 score 5, DFE+, suspected capsular invasion). Imaging sequelae of benign prosthetic hyperplasia, with multiple extruded nodules. The seminal vesicles are clear. Otherwise mildly hypointense appearance with striations of the peripheral zone most compatible with prostatitis sequelae. Pi-RADS 2. Genitourinary system: No hydronephrosis. Bowel and peritoneum: Nonobstructed bowel. Nodes and vessels: Nonaneurysmal pelvic vessels. There are prominent pelvic lymph nodes that are not enlarged by size criteria, indeterminate. Soft tissues: Small bilateral inguinal hernias. Bones: Heterogeneous marrow signal without a focal suspicious enhancing lesion. IMPRESSION: PI-RADS 5 lesion in the left mid and apex anterior peripheral zone extending into the fibromuscular stroma with suspected extracapsular invasion. PI-RADS 5. Dictated by: Neeraj Alvarado M.D. on 12/15/2021 at 15:56 Approved by: Neeraj Alvarado M.D. on 12/15/2021 at 16:07
== END ==
PROVIDERS: PCP Family Medicine; Referring Provider Specialist; Visit Provider Specialist
DX: C61 Malignant neoplasm of prostate (principal)
CPT/HCPCS: 72197; A9579

== ENCOUNTER → 2022-01-09 08:44 | Outpatient (CLI) | payer MEDICARE, OTHER, SELFPAY ==
--- NOTE | 2022-01-09 08:47 | DI.NM.S_ITS ---
PROCEDURE: NM BONE SCAN WHOLE BODY RADIOPHARMACEUTICAL: 19 point mCi Tc-99m MDP IV. INDICATIONS: Presumed localized carcinoma of prostate TECHNIQUE: Delayed whole-body scintigrams were obtained approximately 3-4 hours after intravenous injection of radiotracer. Anterior and posterior views were acquired from vertex to feet. Additional left and right oblique views of the pelvis were obtained. COMPARISON: [facility], CT, CT CHEST ABD PEL W CON, 01/09/2022, 10:34. FINDINGS: Physiologic uptake is noted within the kidneys bladder. There is mild increased uptake within the ankle and bones of feet as well as the 1st CMC joints bilaterally. Increased uptake is noted within the knees bilaterally. There is mild increased uptake within the left joint appearing to correspond degenerative change. Increased uptake is also noted within the lower lumbar spine suggestive of degenerative change. IMPRESSION: Focal areas of uptake most suggestive of degenerative change when compared to CT exam of 01/09/2022. No areas suggestive of metastatic disease are identified. Dictated by: Teressa Olson M.D. on 01/09/2022 at 20:56 Approved by: Teressa Olson M.D. on 01/09/2022 at 20:59
--- NOTE | 2022-01-09 08:47 | DI.CT.S_ITS ---
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 Coronal and sagittal reformats were performed. For radiation dose reduction, the following was used: automated exposure control, adjustment of mA and/or kV according to patient size. COMPARISON: None. FINDINGS: Image quality: Excellent. CHEST: Lower Neck: No enlarged lymph nodes. Thyroid: Unremarkable. Axillae: No enlarged lymph nodes. Chest Wall: Unremarkable. Lungs and Airways: No consolidation or suspicious nodules. Pleura: No pneumothorax or pleural effusions. Heart: Heart size is normal. No pericardial effusion. Thoracic Vessels: The aorta and pulmonary arteries demonstrate normal size. Scattered atheromatous calcifications are present within the aortic arch. Mediastinum and Danya: No enlarged lymph nodes. Esophagus: No wall thickening. No hiatal hernia. ABDOMEN: Liver: Unremarkable. A low-density cyst is present at the dome of the liver and the left hepatic lobe. Gallbladder: Unremarkable. Biliary ducts: Unremarkable. Pancreas: Unremarkable. Spleen: Unremarkable. Adrenal Glands: Unremarkable. Kidneys and Ureters: Unremarkable. Stomach and Bowel: Stomach, small bowel loops, and colon are unremarkable. The appendix is thin walled and gas filled. Peritoneum: No abnormal intraperitoneal fluid. No free air. Ventral Wall: No hernia. Abdominal Nodes: No retroperitoneal or mesenteric adenopathy by size criteria. Vessels: Aorta and inferior vena cava are normal in size. There are scattered atheromatous calcifications throughout the aorta and iliac arteries bilaterally. PELVIS: Pelvic Organs: Unremarkable. Bladder: Unremarkable. Pelvic Nodes: No enlarged lymph nodes. Miscellaneous: There are small bilateral fat containing inguinal hernias. Bones: Unremarkable. IMPRESSION: 1. No acute intra-abdominal findings. Normal appendix. 2. No findings to suggest metastatic disease. Dictated by: Herlinda Devine M.D. on 01/09/2022 at 11:46 Approved by: Herlinda Devine M.D. on 01/09/2022 at 11:50
[2022-01-09 09:47] LABS: Add Manual Diff / Slide Review NO; Basophils Absolute Auto 100 /uL (0-100); Basophils Percent Auto 1.2 % (0-2); Eosinophils Absolute Auto 200 /uL (0-450); Hematocrit 40.4 % (41-53); Hemoglobin 13.9 g/dL (13.5-17.5); Lymphocytes Absolute Auto 1500 /uL (1100-4500); Lymphocytes Percent Auto 25.2 % (25-40); Mean Corpuscular HGB Conc 34.5 % (30-36); Mean Corpuscular Hemoglobin 32.5 PG (26-34); Monocytes Absolute Auto 400 /uL (0-900); Monocytes Percent Auto 6.7 % (3-14); Neutrophils Absolute Auto 3700 /uL (1500-7000); Neutrophils Percent Auto 62.9 % (50-75); Platelet Count 213 X10^3/uL (150-400); Red Cell Distribution Width 12.8 % (11.6-14.8); White Blood Cell Count 5.9 X10^3/uL (4.5-11.0)
[2022-01-09 10:22] LABS: BUN Creatinine Ratio 18.8 (6-22); Blood Urea Nitrogen 15 mg/dL (9-20); Calcium 9.4 mg/dL (8.4-10.2); Carbon Dioxide 28 mmol/L (22-32); Chloride 103 mmol/L (98-107); Estimated Glomerular Filt Rate > 60 mL/min (>60); Glucose 107 mg/dL (80-110); HEMOLYSIS < 15 (0-50); Potassium 4.3 mmol/L (3.4-5.1); Sodium 140 mmol/L (137-145)
== END ==
PROVIDERS: Internal Medicine Hematology & Oncology; PCP Family Medicine; Referring Provider Specialist; Visit Provider Specialist
DX: Z01.812 Encounter for preprocedural laboratory examination (principal); C61 Malignant neoplasm of prostate; R89.8 Other abnormal findings in specimens from other organs, systems and tissues
CPT/HCPCS: 36415; 71260; 74177; 78306; 80048; 85025; A9503

== ENCOUNTER → 2022-04-04 09:06 | Outpatient (CLI) | payer MEDICARE, OTHER, SELFPAY ==
[2022-04-04 09:58] LABS: Add Manual Diff / Slide Review NO; Basophils Absolute Auto 100 /uL (0-100); Eosinophils Absolute Auto 200 /uL (0-450); Eosinophils Percent Auto 2.9 % (2-4); Hematocrit 39.5 % (41-53); Hemoglobin 13.5 g/dL (13.5-17.5); Lymphocytes Absolute Auto 1400 /uL (1100-4500); Lymphocytes Percent Auto 22.7 % (25-40); Mean Corpuscular HGB Conc 34.1 % (30-36); Mean Corpuscular Hemoglobin 32.3 PG (26-34); Mean Corpuscular Volume 94.7 fL (80-100); Monocytes Absolute Auto 600 /uL (0-900); Monocytes Percent Auto 9.8 % (3-14); Neutrophils Absolute Auto 3900 /uL (1500-7000); Neutrophils Percent Auto 63.6 % (50-75); Platelet Count 184 X10^3/uL (150-400); Red Blood Cell Count 4.17 X10^6/uL (4.5-5.9); Red Cell Distribution Width 13.2 % (11.6-14.8); White Blood Cell Count 6.1 X10^3/uL (4.5-11.0)
[2022-04-04 10:14] LABS: INR 1.1 (0.9-1.3); Prothrombin Time 12.3 SECONDS (10.1-12.7)
[2022-04-04 10:15] LABS: Hemoglobin A1C% w Est Avg Glu 5.7 % (4.0-6.0)
[2022-04-04 10:22] LABS: Alanine Aminotransferase 23 IU/L (<50); Alkaline Phosphatase 56 U/L (38-126); Aspartate Aminotransferase 26 IU/L (17-59); BUN Creatinine Ratio 25.3 (6-22); Bilirubin Total 0.8 mg/dL (0.2-1.3); Blood Urea Nitrogen 20 mg/dL (9-20); Calcium 9.5 mg/dL (8.4-10.2); Carbon Dioxide 25 mmol/L (22-32); Chloride 105 mmol/L (98-107); Estimated Glomerular Filt Rate > 60 mL/min (>60); Glucose 87 mg/dL (80-110); HEMOLYSIS < 15 (0-50); Potassium 4.1 mmol/L (3.4-5.1); Sodium 141 mmol/L (137-145); Total Protein 7.7 g/dL (6.3-8.2)
[2022-04-07 16:31] LABS: Albumin 4.5 g/dL (3.5-5.0); Albumin Globulin Ratio 1.4 (1.0-2.8); Globulin 3.2 g/dL (1.7-4.1)
== END ==
PROVIDERS: PCP Family Medicine; Referring Provider Family Medicine; Visit Provider Family Medicine
DX: Z86.2 Personal history of diseases of the blood and blood-forming organs and certain disorders involving the immune mechanism (principal); R73.01 Impaired fasting glucose
CPT/HCPCS: 36415; 80053; 83036; 85025; 85610

== ENCOUNTER → 2022-10-12 10:46 | Outpatient (CLI) | payer MEDICARE, OTHER, SELFPAY ==
--- NOTE | 2022-10-12 | DI.MRI.S_ITS ---
PROCEDURE: MR HEAD/BRAIN WO/W CON INDICATIONS: SUDDEN VISUAL LOSS TECHNIQUE: Noncontrast axial T1 spin echo, axial T2 fast spin echo, sagittal and axial FLAIR, coronal T2 fast spin echo, axial gradient echo, axial diffusion and ADC through the brain. After the administration of contrast, axial and coronal and sagittal T1 spin echo with fat saturation through the brain. COMPARISON: CT, CT HEAD/BRAIN WO CON, 12/30/2017, 14:45. FINDINGS: Image quality: Excellent. CSF spaces: Basal cisterns are patent. No extra-axial fluid collections. Ventricles are normal in size and shape. Brain: No midline shift. No intracranial bleeds or masses. No abnormal intracranial enhancement. There is cerebral volume loss for age. There is periventricular white matter chronic small vessel ischemic change. The brainstem appears normal. Diffusion-weighted images demonstrate no acute ischemic insults. No chronic ischemic insults. Normal intravascular flow voids are present. Skull and face: Calvarial marrow is normal in signal. Orbits appear normal. Sinuses: Sinuses and mastoids appear clear. IMPRESSION: 1. No acute intracranial process. 2. Mild to moderate atrophy and chronic microvascular ischemic changes. Dictated by: Teressa Olson M.D. on 10/12/2022 at 12:35 Approved by: Teressa Olson M.D. on 10/12/2022 at 12:37
== END ==
PROVIDERS: PCP Family Medicine; Referring Provider Family Medicine; Visit Provider Family Medicine
DX: H53.133 Sudden visual loss, bilateral (principal)
CPT/HCPCS: 70553; A9579

== ENCOUNTER → 2024-04-01 10:44 | Outpatient (CLI) | payer MEDICARE, OTHER, SELFPAY ==
--- NOTE | 2024-04-01 | DI.RAD.S_ITS ---
PROCEDURE: XR FEMUR LT MIN 2V INDICATIONS: LEFT THIGH PAIN TECHNIQUE: 2 views of the femur were acquired. COMPARISON: [facility], CR, XR FEMUR LT MIN 2V, 02/19/2018, 10:57. FINDINGS: Bones: There are no osseous abnormalities Joints: Severe left hip degeneration noted. There is mild patellofemoral and tibiofemoral degeneration. Soft tissues: No soft tissue abnormality. IMPRESSION: Severe left hip degeneration. Dictated by: Pelon Munroe M.D. on 04/02/2024 at 9:32 Approved by: Pelon Munroe M.D. on 04/02/2024 at 9:33
== END ==
PROVIDERS: PCP Family Medicine; Referring Provider Family Medicine; Visit Provider Family Medicine
DX: M16.12 Unilateral primary osteoarthritis, left hip (principal); M17.12 Unilateral primary osteoarthritis, left knee; M79.652 Pain in left thigh
CPT/HCPCS: 73552